=== PATIENT | male | born 1980 | race Caucasian/White ===

== ENCOUNTER 2019-04-12 18:29 | Emergency (ER) | payer MEDICAID ==
[~2019-04-12] VITALS: Ht 182.9 cm; Wt 105.9 kg
[2019-04-12 19:08] VITALS: Ht 182.9 cm; Wt 105.9 kg
[2019-04-12] MEDS ORDERED: ZOLOFT50 MG PO (19:09)
[2019-04-12] MEDS ORDERED: ALBUTEROL SULF8.5 GM INH (19:09)
[2019-04-12 19:52] LABS: BASOPHILS 0.3 % (0-2); EOSINOPHILS 1.8 % (0-7); HEMOGLOBIN 14.9 g/dL (13.5-17.5); IMMATURE GRANULOCYTES 0.1 % (0-5); LYMPHOCYTES 18.2 % (15-50); MCH 28.3 pg (26.0-34.0); MCHC 33.9 g/dL (31.0-37.0); MCV 83.5 fL (80.0-100.0); MEAN PLATELET VOLUME 10.2 fL (7.4-10.4); MONOCYTES 7.3 % (2-11); NEUTROPHILS 72.3 % (40-80); PLATELET COUNT 211 10x3/uL (130-400); RBC 5.27 10x6/uL (4.20-6.10); RDW 12.6 % (11.5-14.5); WBC 7.4 10x3/uL (4.8-10.8)
[2019-04-12 20:16] LABS: ALBUMIN 4.1 g/dL (3.4-5.0); ALKALINE PHOSPHATASE 76 U/L (46-116); ALT (SGPT) 26 U/L (10-68); BILIRUBIN - TOTAL 0.51 mg/dL (0.2-1.3); CALC OSMOLALITY 281 mosm/kg (275-300); CALCIUM 9.1 mg/dL (8.5-10.1); CARBON DIOXIDE 26.1 mmol/L (21.0-32.0); CHLORIDE - SERUM 105 mmol/L (98-107); CREATININE - SERUM 1.1 mg/dL (0.6-1.3); GLUCOSE 114 mg/dL (74-106); POTASSIUM - SERUM 4.1 mmol/L (3.5-5.1); SODIUM 141 mmol/L (136-145); UREA NITROGEN 12 mg/dL (7-18); eGFR NON AFRICAN AMERICAN 79 mL/min (90-120)
[2019-04-12] MEDS ORDERED: ULTRAM50 MG PO (21:28)
[2019-04-12] MEDS ORDERED: CLEOCIN HCL300 MG PO (21:28)
[2019-04-12 22:33] VITALS: BP 98/74
== END 2019-04-12 22:34 | disposition home or self-care (01) ==
LOC: D.ER 18:29
PROVIDERS: Emergency Medicine
DX: S91.115A Laceration without foreign body of left lesser toe(s) without damage to nail, initial encounter (principal); W29.3XXA Contact with powered garden and outdoor hand tools and machinery, initial encounter; Y93.89 Activity, other specified; Y92.89 Other specified places as the place of occurrence of the external cause